=== PATIENT | female | born 1990 | race Caucasian/White ===

== ENCOUNTER 2018-11-22 19:40 | Emergency (ER) | payer OTHER ==
[~2018-11-22] VITALS: Ht 165.1 cm; Wt 89.7 kg
[2018-11-22 19:58] VITALS: BP 134/83
== END 2018-11-22 22:32 | disposition home or self-care (01) ==
LOC: ED 21:07
DX: L02.31 Cutaneous abscess of buttock (principal); E10.8 Type 1 diabetes mellitus with unspecified complications
CPT/HCPCS: 10060; 99283; Q0162